=== PATIENT | male | born 1990 | race Caucasian/White ===

== ENCOUNTER → 2025-01-05 | Outpatient (CLI) | payer BC, SELFPAY ==
--- NOTE | 2025-01-05 10:44 | XR_ITS ---
Examination: Lumbar spine, 5 views Technique: Lumbar spine AP, lateral, coned lateral lower lumbar spine, bilateral obliques 5 views Exam date and time: January 05, 2025, 1044 hours INDICATIONS: Low back pain beginning 5 days ago. FINDINGS: Adequate bone density. Mild to moderate diffuse facet arthropathy. No lumbar fracture Mild disc narrowing L4-L5, advanced disc during L5-S1 IMPRESSION: Advanced degenerative disc disease L5-S1
== END | disposition home or self-care (01) ==
LOC: CDIM 10:28
PROVIDERS: PCP Internal Medicine; Referring Provider Internal Medicine; Visit Provider Internal Medicine
DX: M51.370 Other intervertebral disc degeneration, lumbosacral region with discogenic back pain only (principal)
CPT/HCPCS: 72110